=== PATIENT | male | born 2000 | race Caucasian/White ===

== ENCOUNTER 2021-03-12 18:52 | Inpatient (IN) | payer MEDICAID, SELFPAY ==
[2021-03-12 19:05] VITALS: BP 152/94; PULSE 62; RESP 16; TEMP 36.4; O2SAT 96; BMI 22.4
--- NOTE | 2021-03-12 19:07 | ECG_ITS ---
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 Measurements Intervals [place] Rate: 47 P: 66 ID: [id number] QRS: 88 QRSD: 101 T: 63 QT: 436 QTc: 387 Interpretive Statements SINUS BRADYCARDIA No previous ECG available for comparison Electronically Signed On 03-13-2021 17:10:16 CDT by Tim Hwang M.D. [id number]
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
[2021-03-12 19:37] LABS: Basophils # 0.1 10^3/uL (0.0-0.1); Basophils % 0.8 %; Eosinophils # 0.4 10^3/uL (0.0-0.8); Hematocrit 47.6 % (42.0-52.0); Hemoglobin 15.8 g/dL (11.7-16.6); Lymphocytes # 3.3 10^3/uL (0.8-4.8); Mean Corpuscular HGB Conc 33.2 g/dL (30.0-36.0); Mean Corpuscular Volume 90.5 fl (80-94); Monocytes # 0.8 10^3/uL (0.2-0.9); Monocytes % 8.6 %; Neutrophils # 4.42 10^3/uL (1.8-7.7); Neutrophils % 49.2 %; Nucleated Red Blood Cells % 0 %; Platelet Count 310 10^3/cmm (130-400); Red Blood Count 5.26 10^6/uL (4.1-5.3); Red Cell Distribution Width 12.7 % (12.1-15.1)
[2021-03-12 20:12] LABS: Alanine Aminotransferase 46 U/L (0-41); Albumin Level 4.5 g/dL (3.5-5.2); Alkaline Phosphatase 80 IU/L (40-130); Anion Gap 14.6 (5-19); Aspartate Amino Transferase 26 U/L (0-40); Blood Urea Nitrogen 9 mg/dL (6-20); Calcium 9.2 mg/dL (8.5-10.5); Carbon Dioxide 28 mmol/L (22-29); Chloride 98 mmol/L (98-107); Globulin 2.9 g/dL (1.3-4.6); Glomerular Filtration Rate 168.5 mL/min (90-130); Glucose 56 mg/dL (65-115); Osmolality Calculated 280 mOsm/kg (285-295); Potassium 3.6 mmol/L (3.5-5.1); Sodium 137 mmol/L (136-145); Thyroid Stimulating Hormone 2.33 uIU/mL (0.27-4.20); Total Bilirubin 0.5 mg/dL (0.15-1.2); Total Protein 7.4 g/dL (6.6-8.7)
[2021-03-12 20:23] LABS: Acetaminophen < 5.0 ug/mL (10-30); Alcohol Level < 10 mg/dL (0-10); Salicylate < 0.3 mg/dL (3-10)
[2021-03-12 21:00] VITALS: BP 148/88; PULSE 64; RESP 18; O2SAT 96
[2021-03-12 21:31] VITALS: BP 124/62; BP 148/88; PULSE 57; PULSE 64; RESP 15; RESP 18; TEMP 36.8; O2SAT 96; O2SAT 98
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
[2021-03-13 06:00] VITALS: BP 126/76; PULSE 81; RESP 14; O2SAT 95
--- NOTE | 2021-03-13 12:12 | NPU.GN ---
[facility] Topic:Meditation/ Depression Zaina General Mood of Group: Alonso did not attend group today.
[2021-03-13 14:00] VITALS: BP 137/64; PULSE 69; RESP 18; TEMP 36.3; O2SAT 97
--- NOTE | 2021-03-13 14:51 | PC.NURSE ---
behaviors Beating and banging on wall in pt room. Pt denies doing any behaviors at all. laying in bed agitated. Will continue to monitor.
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
[2021-03-13 21:44] VITALS: BP 121/80; PULSE 78; RESP 16; O2SAT 96
[2021-03-14 06:00] VITALS: BP 103/48; PULSE 73; RESP 17; TEMP 36.6; O2SAT 97
[2021-03-14] MEDS: nicotine 2 mg Gum BUCCAL ×5 (10:58→20:37)
[2021-03-14 14:00] VITALS: BP 119/58; PULSE 94; RESP 20; TEMP 37.2; O2SAT 95
--- NOTE | 2021-03-14 14:00 | NPU.GN ---
[facility] Topic:Dice Breaker Psych Education General Mood of Group: Alonso did attend group and participated . Alonso was very timid and seemed to exhibit social anxiety. As group went on he seemed to relax. Alonso seemed very worried about his dogs that he has at home and is worried because no one has fed them. Alonso claims to have an apartment to move into when he is release here in [place] and would like [facility] services. This telegraphic typewriter operator aided him in completing the Intake forms as the patient could not read or write. Intake was completed for [facility] services.
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
[2021-03-14 22:00] VITALS: BP 122/73; PULSE 85; RESP 18; TEMP 36.8; O2SAT 99
--- NOTE | 2021-03-15 02:36 | PC.NURSE ---
Upon assessment patient sitting in day room. Patient is alert/oriented x4, good eye contact and friendly. Patient denies any depression, anxiety, SI/HI, hallucinations. He did attend group today. He has been social with peers and cooperative with staff. Will continue to monitor and follow plan of care. q 15 min safety check per protocol.
[2021-03-15 06:00] VITALS: RESP 16
[2021-03-15] MEDS: nicotine 2 mg Gum BUCCAL ×7 (08:29→22:22)
[2021-03-15 14:00] VITALS: BP 122/73; PULSE 85; RESP 16; TEMP 36.8; O2SAT 99
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
[2021-03-15 22:00] VITALS: BP 120/82; PULSE 78; RESP 19; TEMP 36.6; O2SAT 97
[2021-03-16 06:00] VITALS: RESP 16
[2021-03-16] MEDS: nicotine 2 mg Gum BUCCAL ×2 (07:49→09:57)
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
--- NOTE | 2021-03-16 11:36 | PC.NURSE ---
Unable to contact father, tried calling twice on the 6th. Pt states that he will be living at his Grandfathers home, his grandfather comes and leaves. Pt will be living on his own.
[2021-03-16 11:42] VITALS: BP 117/70; PULSE 102; RESP 17; TEMP 36.4; O2SAT 96
== END 2021-03-16 11:49 | disposition home or self-care (01) | DRG 880 ==
LOC: ER 21:06 → NP 21:14
PROVIDERS: Emergency Medicine; Admitting Provider Psychiatry & Neurology Psychiatry; Emergency Provider Emergency Medicine; Visit Provider Psychiatry & Neurology Psychiatry
DX: R45.851 Suicidal ideations (principal); F84.0 Autistic disorder; Z63.8 Other specified problems related to primary support group; Z62.820 Parent-biological child conflict; F90.9 Attention-deficit hyperactivity disorder, unspecified type; F12.10 Cannabis abuse, uncomplicated
CPT/HCPCS: 80053; 80307; 84443; 85025; 93005; 97165; 99285

== ENCOUNTER 2021-11-20 20:20 | Emergency (ER) | payer MEDICAID, SELFPAY ==
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
[2021-11-20 20:51] LABS: Basophils # 0.1 10^3/uL (0.0-0.1); Basophils % 0.8 %; Eosinophils # 0.3 10^3/uL (0.0-0.8); Eosinophils % 3.4 %; Hematocrit 39.9 % (42.0-52.0); Hemoglobin 14.5 g/dL (11.7-16.6); Lymphocytes % 46.1 %; Mean Corpuscular HGB Conc 36.3 g/dL (30.0-36.0); Mean Corpuscular Hemoglobin 30.6 pg (28.0-34.0); Mean Corpuscular Volume 84.2 fl (80-94); Mean Platelet Volume 10.1 fL (7.4-10.4); Monocytes # 0.5 10^3/uL (0.2-0.9); Monocytes % 6.2 %; Neutrophils # 3.66 10^3/uL (1.8-7.7); Neutrophils % 42.6 %; Nucleated Red Blood Cells % 0 %; Platelet Count 350 10^3/cmm (130-400); Red Blood Count 4.74 10^6/uL (4.1-5.3); Red Cell Distribution Width 13.4 % (12.1-15.1); White Blood Count 8.6 10^3/uL (4.0-10.0)
[2021-11-20 21:09] LABS: Alanine Aminotransferase 16 U/L (0-41); Albumin Level 4.4 g/dL (3.5-5.2); Alcohol Level 75 mg/dL (0-10); Alkaline Phosphatase 102 IU/L (40-130); Anion Gap 21.6 (5-19); Aspartate Amino Transferase 27 U/L (0-40); Blood Urea Nitrogen 10 mg/dL (6-20); Calcium 9.1 mg/dL (8.5-10.5); Carbon Dioxide 22 mmol/L (22-29); Chloride 102 mmol/L (98-107); Glomerular Filtration Rate 93.4 mL/min (90-130); Glucose 125 mg/dL (65-115); Osmolality Calculated 295 mOsm/kg (285-295); Potassium 3.6 mmol/L (3.5-5.1); Salicylate 0.6 mg/dL (3-10); Sodium 142 mmol/L (136-145); Total Bilirubin 0.2 mg/dL (0.15-1.2); Total Protein 7.4 g/dL (6.6-8.7)
[2021-11-20 21:11] LABS: Acetaminophen < 5.0 ug/mL (10-30)
[2021-11-20] MEDS: ondansetron 2 mg/ML SDV 2 mL 4 MG IVP (21:24)
[2021-11-20] MEDS: tetanus-dipt-pertussis 0.5 mL SDV IM (21:24)
[2021-11-20 21:28] VITALS: BP 131/75; PULSE 68; RESP 15; O2SAT 100
[2021-11-20] MEDS: fentaNYL 50 mcg/mL INJ 2mL IVP (21:44)
[2021-11-20 22:04] VITALS: BP 127/84; PULSE 60; RESP 12; O2SAT 97
[2021-11-20 22:31] VITALS: BP 127/84; PULSE 64; RESP 12; O2SAT 99
== END 2021-11-20 22:33 ==
PROVIDERS: Emergency Provider Emergency Medicine
DX: S06.9X9A Unspecified intracranial injury with loss of consciousness of unspecified duration, initial encounter (principal); S06.5X9A Traumatic subdural hemorrhage with loss of consciousness of unspecified duration, initial encounter; S06.6X9A Traumatic subarachnoid hemorrhage with loss of consciousness of unspecified duration, initial encounter; V86.59XA Driver of other special all-terrain or other off-road motor vehicle injured in nontraffic accident, initial encounter; Z23 Encounter for immunization
CPT/HCPCS: 70450; 70486; 71260; 72125; 74177; 80053; 80307; 85025; 90471; 90715; 96374; 96375; 99285; J2405; J3010; Q9967

== ENCOUNTER 2021-12-05 21:55 | Emergency (ER) | payer MEDICAID, SELFPAY ==
--- NOTE | 2021-12-05 21:56 | XRR_ITS ---
PROCEDURE INFORMATION: Exam: XR Chest Exam date and time: 12/05/2021 10:26 PM Age: 21 years old Clinical indication: Pain; Left-sided; Additional info: Rib pain TECHNIQUE: Imaging protocol: Radiologic exam of the chest. Views: 1 view. COMPARISON: CT chest abd pel w con* 11/20/2021 9:02 PM FINDINGS: Lungs: Lungs are clear bilaterally. Pleural spaces: No pleural effusion. No pneumothorax. Heart/Mediastinum: The cardiac silhouette and mediastinal contours are unremarkable. Bones/joints: No acute fracture. XR/XR chest 1V portable [id number] IMPRESSION: 1. No acute cardiopulmonary process. 2. No acute fracture. 3. CT scan of the chest with contrast would be recommended if there is continuing clinical concern for thoracic injury.
[2021-12-05 22:07] VITALS: BP 141/92; PULSE 73; RESP 18; TEMP 36.6; O2SAT 98; BMI 21.2
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
== END 2021-12-05 23:06 | disposition home or self-care (01) ==
PROVIDERS: Emergency Provider Physician Assistant
DX: S29.011A Strain of muscle and tendon of front wall of thorax, initial encounter (principal); X50.9XXA Other and unspecified overexertion or strenuous movements or postures, initial encounter
CPT/HCPCS: 71045; 71101; 99283

== ENCOUNTER 2022-04-01 19:12 | Emergency (ER) | payer MEDICAID, SELFPAY ==
[2022-04-01 19:18] VITALS: BP 177/103; PULSE 88; RESP 17; TEMP 36.9; O2SAT 99; BMI 20.9
[2022-04-01 19:38] LABS: Basophils # 0.1 10^3/uL (0.0-0.1); Basophils % 0.7 %; Eosinophils # 0.1 10^3/uL (0.0-0.8); Hematocrit 47.7 % (42.0-52.0); Hemoglobin 16.2 g/dL (11.7-16.6); Lymphocytes # 1.4 10^3/uL (0.8-4.8); Lymphocytes % 20.4 %; Mean Corpuscular Hemoglobin 30.4 pg (28.0-34.0); Mean Corpuscular Volume 89.5 fl (80-94); Mean Platelet Volume 9.7 fL (7.4-10.4); Monocytes # 1.1 10^3/uL (0.2-0.9); Monocytes % 16.6 %; Neutrophils # 4.12 10^3/uL (1.8-7.7); Nucleated Red Blood Cells % 0 %; Platelet Count 299 10^3/cmm (130-400); Red Blood Count 5.33 10^6/uL (4.1-5.3); Red Cell Distribution Width 13.2 % (12.1-15.1); White Blood Count 6.8 10^3/uL (4.0-10.0)
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
[2022-04-01 19:55] LABS: Alanine Aminotransferase 14 U/L (0-41); Albumin Level 4.8 g/dL (3.5-5.2); Alkaline Phosphatase 87 U/L (40-130); Aspartate Amino Transferase 26 U/L (0-40); Blood Urea Nitrogen 19 mg/dL (6-20); Calcium 9.4 mg/dL (8.5-10.5); Carbon Dioxide 25 mmol/L (22-29); Chloride 100 mmol/L (98-107); Creatinine Clr Calc Pharmacy 151.6994; Globulin 3.3 g/dL (1.3-4.6); Glomerular Filtration Rate 119.8 mL/min (90-130); Glucose 106 mg/dL (65-115); Osmolality Calculated 289 mOsm/kg (285-295); Sodium 138 mmol/L (136-145); Total Bilirubin 0.3 mg/dL (0.15-1.2); Total Protein 8.1 g/dL (6.6-8.7)
[2022-04-01 19:58] LABS: Acetaminophen < 5.0 ug/mL (10-30); Alcohol Level < 10 mg/dL (0-10); Salicylate < 0.3 mg/dL (3-10)
--- NOTE | 2022-04-02 05:10 | DCPLANNER ---
Addendum entered by Karina Saucedo 04/23/22 15:12: senior product marketing manager received the following message from [facility] regarding referral to [facility]: emailed Tala/reece or Crystal to call and give information On 04/10/22 @ 08:37 Karina Saucedo Wrote To [facility] Scheduling was his information sent to Tala [place] to reach out to him to start services? On 04/09/22 @ 15:48 Karina Torres Wrote To Karina Saucedo not a patient here, needs to come to [facility] for walk-in assessment to start sevices Original Note: senior product marketing manager had message to schedule a follow up appointment for patient with [facility]. senior product marketing manager sent patients information to [facility] scheduling, patients information will be reviewed. Clinic will call patient with appointment information.
== END 2022-04-01 21:19 | disposition home or self-care (01) ==
PROVIDERS: Emergency Provider Emergency Medicine
DX: F32.A Depression, unspecified (principal)
CPT/HCPCS: 80053; 80307; 85025; 99283

== ENCOUNTER 2024-03-03 19:30 | Emergency (ER) | payer MEDICAID, SELFPAY ==
[2024-03-03 19:39] VITALS: BP 126/77; PULSE 100; RESP 16; TEMP 36.8; O2SAT 95
--- NOTE | 2024-03-03 20:03 | XRR_ITS ---
PROCEDURE INFORMATION: Exam: XR Left Knee Exam date and time: 03/03/2024 8:19 PM Age: 24 years old Clinical indication: Injury or trauma; Fall; Laceration; Patella or knee; Left; Foreign body involvement not specified; Patient HX: Lac to lt anterior knee; Lt knee pain TECHNIQUE: Imaging protocol: Radiologic exam of the left knee. Views: 3 views. COMPARISON: No relevant prior studies available. FINDINGS: Bones/joints: Normal. Soft tissues: Normal. XR/XR knee LT 3V* [id number] IMPRESSION: No acute findings.
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
[2024-03-03 21:52] VITALS: BP 134/78; PULSE 68; O2SAT 99
== END 2024-03-03 21:53 | disposition home or self-care (01) ==
PROVIDERS: Emergency Provider Emergency Medicine
DX: S81.012A Laceration without foreign body, left knee, initial encounter (principal); V18.0XXA Pedal cycle driver injured in noncollision transport accident in nontraffic accident, initial encounter; Y93.55 Activity, bike riding
CPT/HCPCS: 12002; 73562; 99283

== ENCOUNTER 2024-03-31 15:19 | Emergency (ER) | payer MEDICAID, SELFPAY ==
[2024-03-31 15:24] VITALS: BP 153/103; PULSE 130; RESP 16; TEMP 36.6; O2SAT 100; BMI 23.0
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
[2024-03-31 16:19] VITALS: BP 114/69; PULSE 104; RESP 16; O2SAT 99
[2024-03-31 16:47] VITALS: BP 140/79; PULSE 113; RESP 20; O2SAT 99
== END 2024-03-31 16:33 | disposition home or self-care (01) ==
PROVIDERS: Emergency Provider Physician Assistant
DX: S01.01XA Laceration without foreign body of scalp, initial encounter (principal); X58.XXXA Exposure to other specified factors, initial encounter
CPT/HCPCS: 12011; 99282

== ENCOUNTER 2024-07-01 16:50 | Emergency (ER) | payer MEDICAID, SELFPAY ==
[2024-07-01 16:54] VITALS: BP 143/88; PULSE 91; RESP 16; TEMP 36.3; O2SAT 99; BMI 23.0
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
[2024-07-01] MEDS: tetanus-dipt-pertussis 0.5 mL SDV IM (17:50)
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
[2024-07-01 18:18] VITALS: BP 143/73; PULSE 86; O2SAT 100
[2024-07-01] MEDS: iohexol 350 mg/mL 500 mL Btl (per mL) IV (18:21)
[2024-07-01 18:34] VITALS: BP 137/86; PULSE 85; O2SAT 100
[2024-07-01 18:38] LABS: Basophils # 0.1 10^3/uL (0.0-0.1); Basophils % 0.6 %; Eosinophils # 0.1 10^3/uL (0.0-0.8); Eosinophils % 1.2 %; Hematocrit 42.4 % (37-53); Lymphocytes # 1.9 10^3/uL (0.8-4.8); Lymphocytes % 16.9 %; Mean Corpuscular Hemoglobin 29.5 pg (27-33); Mean Corpuscular Volume 89.3 fl (82-101); Mean Platelet Volume 9.7 fL (7.4-10.4); Monocytes # 0.9 10^3/uL (0.2-0.9); Monocytes % 7.8 %; Neutrophils # 8.33 10^3/uL (1.8-7.7); Neutrophils % 72.9 %; Nucleated Red Blood Cells % 0 %; Platelet Count 255 10^3/cmm (157-399); Red Blood Count 4.75 10^6/uL (3.85-5.65); Red Cell Distribution Width 12.5 % (12.1-15.1); White Blood Count 11.43 10^3/uL (3.29-11.43)
[2024-07-01 18:59] LABS: Alanine Aminotransferase 115 U/L (0-41); Albumin Level 4.1 g/dL (3.5-5.2); Alkaline Phosphatase 89 U/L (40-130); Anion Gap 14.3 (5-19); Aspartate Amino Transferase 109 U/L (0-40); Blood Urea Nitrogen 16 mg/dL (6-20); Calcium 8.7 mg/dL (8.5-10.5); Carbon Dioxide 24 mmol/L (22-29); Chloride 100 mmol/L (98-107); Creatinine Clr Calc Pharmacy 137.3689; Globulin 3.1 g/dL (1.3-4.6); Glomerular Filtration Rate 102.8 mL/min (90-130); Glucose 90 mg/dL (65-115); Osmolality Calculated 279 mOsm/kg (285-295); Potassium 4.3 mmol/L (3.5-5.1); Sodium 134 mmol/L (136-145); Total Bilirubin 0.2 mg/dL (0.15-1.2); Total Protein 7.2 g/dL (6.6-8.7)
[2024-07-01 19:48] VITALS: BP 147/88; PULSE 97; RESP 16; O2SAT 100
--- NOTE | 2024-07-01 20:17 | PC.NURSE ---
Pt sent home with 2tabs of Hydrocodone 5/[address] Baker's orders.
[2024-07-01 20:18] VITALS: BP 151/93; PULSE 95; RESP 16; O2SAT 100
== END 2024-07-01 20:20 | disposition home or self-care (01) ==
PROVIDERS: Family Medicine; Emergency Provider Emergency Medicine
DX: S42.001A Fracture of unspecified part of right clavicle, initial encounter for closed fracture (principal); T14.8XXA Other injury of unspecified body region, initial encounter; V20.49XA Other motorcycle driver injured in collision with pedestrian or animal in traffic accident, initial encounter
CPT/HCPCS: 36415; 70450; 71260; 72125; 73130; 74177; 80053; 85025; 90471; 90715; 99285

== ENCOUNTER 2025-03-14 17:08 | Inpatient (IN) | payer MEDICAID, SELFPAY ==
--- NOTE | 2025-03-14 17:09 | ED.C_ITS ---
HPI - Psych 2 General: Chief Complaint: Overdose Stated Complaint: 96, Overdose Time Seen by Provider: 03/14/25 17:09 History of Present Illness: 25-year-old man who presents emergency r oom with police after calling in saying he was suicidal. He said he was suicidal because he could not get a ride to [place] with any of his roommates to see his grandmother. He also took 5 Xanax. He says this was just to make him sleep. He is currently denying SI but please officer says he was very adamant that he was earlier. Related Data Previous Rx's ?Medication ?Instructions ?Recorded polymyxin B sulfate 10,000 1 drp ophthalmic (eye) Q3H 7 days 07/01/22 unit-trimethoprim 1 mg/mL eye drops #10 mL hydrocodone 5 mg-acetaminophen 325 1 tab PO Q8H PRN pa in #7 tabs 07/01/24 mg tablet Allergies Allergy/AdvReac Type Severity Reaction Status Date / Time No Known Allergies Allergy Verified 03/03/24 19:44 Review of Systems 2 Narrative: Constitutional symptoms: Negative except as documented in HPI. Skin symptoms: Negative except as documented in HPI. Eye symptoms: Negative except as documented in HPI. ENMT symptoms: Negative except as documented in HPI. Respiratory symptoms: Negative except as documented in HPI. Cardiovascular symptoms: Negative except as documented in HPI. Gastrointestinal symptoms: Negative except as documented in HPI. Genitourinary symptoms: Negative except as documented in HPI. Musculoskeletal symptoms: Negative except as documented in HPI. Neurologic symptoms: Negative except as documented in HPI. Psychiatric symptoms: Negative except as documented in HPI. Endocrine symptoms: Negative except as documented in HPI. [facility] ED 2 PFSH: Medical History (Updated 03/14/25 @ 19:57 by Clotilde Alba MD) No significant past medical history Surgical History No significant past surgical history Family History Denies family history of Clotting disorder Bleeding disorder Physical Exam 2 Narrative: EXAM NARRATIVE: General: Alert, no acute distress. Skin: Warm, dry. Head: Normocephalic, atraumatic. Neck: Supple, trachea midline. Eye: Extraocular movements are intact. Ears, nose, mouth and throat: mucosa moist. Cardiovascular: Regular, Normal peripheral perfusion. Respiratory: Lungs are clear to auscultation, respirations are non-labored, breath sounds are equal, Symmetrical chest wall expansion. Gastrointestinal: Soft, Nontender, Non distended Musculoskeletal: Normal ROM, no deformity. Neurological: Alert and oriented, No focal neurological deficit observed. Psychiatric: Patient is uncooperative. He does deny suicidal and homicidal ideation. He says we will have to fight him to get him to dress out. Ultimately he calms down. Course 2 Vital Signs: Vital signs: Vital Signs Temperature 98.8 F 03/14/25 17:18 Pulse Rate 86 03/14/25 20:30 Respiratory Rate 18 03/14/25 17:18 Blood Pressure 135/72 03/14/25 17:18 Pulse Oximetry 98 03/14/25 20:30 Oxygen Delivery Me thod Room Air 03/14/25 20:30 MDM - Psych Medical Decision Making Medical decision making: Patient's reason for coming to the emergency room: 96-hour hold by police Social determinants patient is unemployed I reviewed the patient's medical record. Patient had a psychiatric visit back in 2020 I reviewed the patient's current home meds Alternate historians: Differential diagnosis: Patient with reported depression and suicidal ideation. concerns for infection, alcohol intoxication, cardiac issues or other medical problems prior to psychiatric admission. Workup: labwork, ekg ordered to evaluate the pathologies and to clear the patient medically prior to psychiatric admission Lab Review: Laboratory results were reviewed and interpreted by myself the emergency room physician. - Medically cleared. - EKG shows no ischemic changes. - Blood alcohol level is negative, -Tylenol and salicylate levels are negative. ?Urinalysis and drug screen pending at admission. - No anemia. - BUN and creatinine are within normal limits. Assessment of risk: - Level of risk - Was hospitalization considered? Consultation: I spoke with Dr. Callaway who agrees to admission pending bed. Assessment and plan: Suicidal ideation -Admission to neuropsychiatric unit for continued evaluation and treatment. - All lab work was reviewed and interpreted personally by myself, the ER physician - Evaluation and treatment of this problem were appropriate in the emergency setting Lab Data 03/14/25 18:01 03/14/25 18:01 Laboratory Results WBC 10.12 10^3/uL (3.29-11.43) 03/14/25 18: RBC 4.80 10^6/uL (3.85-5.65) 03/14/25 18: Hgb 14.40 g/dL (11.27-16.99) 03/14/25 18: Hct 41.2 % (37-53) 03/14/25 18: MCV 85.8 fl (82-101) 03/14/25 18: MCH 30.0 pg (27-33) 03/14/25 18: MCHC 35.0 g/dL (30-55) 03/14/25 18: RDW 12.7 % (12.1-15.1) 03/14/25 18: Plt Count 277 10^3/cmm (157-399) 03/14/25 18: MPV 9.5 fL (7.4-10.4) 03/14/25 18: Neut % (Auto) 66.9 % 03/14/25 18: Lymph % (Auto) 22.9 % 03/14/25 18: [place] % (Auto) 8.4 % 03/14/25 18: Eos % (Auto) 0.9 % 03/14/25 18: Baso % (Auto) 0.5 % 03/14/25 18: Neut # (Auto) 6.77 10^3/uL (1.8-7.7) 03/14/25 18: Lymph # (Auto) 2.3 10^3/uL (0.8-4.8) 03/14/25 18: [place] # (Auto) 0.9 10^3/uL (0.2-0.9) 03/14/25 18: Eos # (Auto) 0.1 10^3/uL (0.0-0.8) 03/14/25 18: Baso # (Auto) 0.1 10^3/uL (0.0-0.1) 03/14/25 18: Nucleated RBC % (auto) 0 % 03/14/25 18: Nucleated RBCs # 0.0 /100WBC 03/14/25 18: Sodium 139 mmol/L (136-145) 03/14/25 18: Potassium 4.0 mmol/L (3.5-5.1) 03/14/25 18: Chloride 103 mmol/L (98-107) 03/14/25 18: Carbon Dioxide 23 mmol/L (22-29) 03/14/25 18: Anion Gap 17.0 (5-19) 03/14/25 18: BUN 20 mg/dL (6-20) 03/14/25 18: Creatinine 1.0 mg/dL (0.7-1.2) 03/14/25 18: GFR Calculation 90.3 mL/min (90-130) 03/14/25 18: Glucose 89 mg/dL (65-115) 03/14/25 18: Calculated Osmolality 290 mOsm/kg (285-295) 03/14/25 18: Calcium 9.0 mg/dL (8.5-10.5) 03/14/25 18: Total Bilirubin 0.7 mg/dL (0.15-1.2) 03/14/25 18: AST 28 U/L (0-40) 03/14/25 18: ALT 19 U/L (0-41) 03/14/25 18: Alkaline Phosphatase 84 U/L (40-130) 03/14/25 18: Total Protein 7.5 g/dL (6.6-8.7) 03/14/25 18: Albumin 4.5 g/dL (3.5-5.2) 03/14/25 18: Globulin 3.0 g/dL (1.3-4.6) 03/14/25 18: TSH 0.69 uIU/mL (0.27-4.20) 03/14/25 18: Salicylates < 0.3 mg/dL (3-10) L 03/14/25 18: Acetaminophen < 5.0 ug/mL (10-30) L 03/14/25 18: Ethyl Alcohol < 10 mg/dL (0-10) 03/14/25 18:01 No radiology studies performed this visit Discharge Plan Discharge Patient Disposition: Admitted As Inpatient Clinical Impression: Suicidal ideation Condition: Stable Coding Level of Care Code ED Product Manager E [employer] for Candida Joe
--- NOTE | 2025-03-14 17:10 | ECG_ITS ---
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 Measurements Intervals [place] Rate: 88 P: 82 OK: 152 QRS: 91 QRSD: 105 T: 75 QT: 362 QTc: 440 Interpretive Statements SINUS RHYTHM BORDERLINE RIGHT AXIS DEVIATION [QRS AXIS > 90] POSSIBLE RIGHT VENTRICULAR CONDUCTION DELAY [RSR (QR) IN V1/V2] Compared to ECG 03/12/2021 19:57:20 Sinus bradycardia no longer present Electronically Signed On 03-14-2025 23:38:27 BENCH CARPENTER by Becki Zuñiga M.D. [email or web address]
[2025-03-14 17:18] VITALS: BP 135/72; PULSE 94; RESP 18; TEMP 37.1; O2SAT 99; BMI 19.0
--- OUTSIDE RECORDS SUMMARY | 2025-03-14 17:18 | XMS_ITS | Clinical Summary ---
Author Organization [employer] Address [address] Reichn: Epic Prelude ADT [place] [address] Care Team Providers Care Real Estate Agency Licensee Name Role Phone Unavailable Primary Care Provider Unavailabl e Allergies No known active allergies Active Problems Problem Noted Date Diagnosed Date Incontinence of urine 06/07/2011 ADHD (attention deficit hyperactivity disorder) 06/07/2011 Asperger's disorder 06/07/2011 Generalized anxiety disorder 06/07/2011 Immunizations Immunization Administration Dates Next Due (M-M-R II/PRIORIX)(12 MO UP) MEASLES, MUMPS AND RUBELLA VIRUS VACCINE, 0.5 ML IM/SUBCUT 01/16/2004,01/22/2000 (TDVAX)(7 YRS UP) TETANUS AN D DIPHTHERIA TOXOIDS, ADSORBED (2 LF OF TETANUS TOXOID AND 2 LF OF DIPHTHERIA TOXOID), 0.5ML (PF), IM 10/26/2008 (VARIVAX)(12 MOS UP)VARICELL A VIRUS VACCINE (PF) 0.5 ML, SUB CUT 11/24/2000 Dt Dtp Dtap Vaccine 01/16/2004, 1,01/22/2000,1999,1999 HIB, Unspecified Formulation 11/24/2000, 01/22/2000,1999,1998 Hepatitis B Vaccine 01/22/2000,1999,1998 IPV/OPV 01/16/2004, 0,1999,1998 Family History Medical History Relation Name Comments Healthy Father Healthy Mother Relation Name Status Comments Father Alive Mother Alive Social History Tobacco Use Types Packs/Day Years Used Date Smoking Tobacco: Never Alcohol Use Standard Drinks/Week Comments No 0 (1 standard drink = 0.6 oz pur e alcohol) Sex and Gender Information Value Date Recorded Sex Assigned at Not on file 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 Gender Identity Not on file Sexual Orientation Not on file Last Filed Vital Signs Vital Sign Reading Time Taken Comments Blood Pressure 133/85 12/14/2021 12:28 AM CDT Pulse - - Temperature 36.1 C (97 F) 12/14/2021 12:28 AM CDT Respiratory Rate 20 12/14/2021 12:28 AM CDT Oxygen Saturation 98% 12/14/2021 12:28 AM CDT Inhaled Oxygen Concentration - - Weight 77.1 kg (170 lb) 12/14/2021 12:28 AM CDT Height 182.9 cm (6') 12/14/2021 12:28 AM CDT Body Mass Index 23.06 12/14/2021 12:28 AM CDT Plan of Treatment Health Maintenance Due Date Last Done Comments DTAP/TDAP/TD VACCINES (6 - Tdap) 2010 10/26/2008, 01/16/2004, 11/24/2000, Additional history exists HPV VACCINES (1 - Male 3-dos e series) 2014 INFLUENZA VACCINE (#1) 2024 HEPATITIS B VACCINES Completed 01/22/2000, 1999, 2000
--- OUTSIDE RECORDS SUMMARY | 2025-03-14 17:18 | XMS_ITS | Encounter Summary ---
Author Organization [employer] [facility] Address [address] [place] [address] Care Team Providers Care Chemical Supervisor Name Role Phone Sonya Retana DO Primary Care Provider [phone] Encounter Details Date Type Department Care Team (Latest Contact Info) Description 1999 Outpatient Historical HIS [facility] Mike Kinney MD [address] [place] [id number] Unspecified otitis media (Primary Dx) Social History Tobacco Use Types Packs/Day Years Used Date Smoking Tobacco: Never Assessed Sex and Gender Information Value Date Recorded Sex Assigned at Not on file 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
--- OUTSIDE RECORDS SUMMARY | 2025-03-14 17:18 | XMS_ITS | Clinical Summary ---
Author Organization [facility] Address [address] [place] [address] Care Team Providers Care Immigration Investigator Name Role Phone LaineySonya Jeny JOLLY Primary Care Provider Allergies No known active allergies Medications sertraline (ZOLOFT) 100 mg Oral tabletIndication s:Generalized anxiety disorder Take 1 Tab by mouth daily at bedtime. 30 Tab 12 06/18/2011 Active aripiprazole (ABILIFY) 5 mg Oral tablet Take 1 Tab by mouth daily. 30 Tab 12 07/02/2011 Active mirtazapine (REMERON) 7.5 mg Oral tabletIndication s:Insomnia Take 1-2 Tabs by mouth daily at bedtime. 60 Tab 2 07/10/2011 Active Active Problems Problem Noted Date Diagnosed Date Generalized anxiety disorder 06/07/2011 Incontinence of urine 06/07/2011 ADHD (attention deficit hyperactivity disorder) 06/07/2011 Asperger's disorder 06/07/2011 Immunizations Immunization Administration Dates Next Due (M-M-R II/PRIORIX)(12 MO UP) MEASLES, MUMPS AND RUBELLA VIRUS VACCINE, 0.5 ML IM/SUBCUT 01/16/2004,01/22/2000 (TDVAX)(7 YRS UP) TETANUS AN D DIPHTHERIA TOXOIDS, ADSORBED (2 LF OF TETANUS TOXOID AND 2 LF OF DIPHTHERIA TOXOID), 0.5ML (PF), IM 10/26/2008 (VARIVAX)(12 MOS UP)VARICELL A VIRUS VACCINE (PF) 0.5 ML, SUB CUT 11/24/2000 Dt Dtp Dtap Vaccine 01/16/2004,01/22/2000,1999,1999 HIB, Unspecified Formulation 11/24/2000, 01/22/2000,1999,1998 Hepatitis B [...] on file 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 Gender Identity Not on file Sexual Orientation Not on file Last Filed Vital Signs Vital Sign Reading Time Taken Comments Blood Pressure 86/52 05/28/2011 1:45 PM CREMATORY OPERATOR Pulse 70 09/15/2011 3:02 PM CDT Temperature 36.7 C (98 F) 09/15/2011 3:02 PM CDT Respiratory Rate 20 09/15/2011 3:02 PM CDT Oxygen Saturation 96% 09/15/2011 3:02 PM CDT Inhaled Oxygen Concentration - - Weight 42.2 kg (93 lb) 09/15/2011 3:02 PM CDT Height 149.9 cm (4' 11 ) 09/15/2011 3:02 PM CDT Body Mass Index 18.78 09/15/2011 3:02 PM CDT Plan of Treatment Health Maintenance Due Date Last Done Comments DTAP/TDAP/TD VACCINES (6 - Tdap) 2010 10/26/2008, 01/16/2004, 11/24/2000, Additional history exists HPV VACCINES (1 - Male 3-dos e series) 2014 Preventative Visit-Managed Medicaid 2018 INFLUENZA VACCINE (#1) 2024 HEPATITIS B VACCINES Completed 01/22/2000, 1999, 1999 Insurance [place] Care Teams Immigration Investigator Relationship Specialty Start Date End Date Sonya Retana DO [address] [place] [address] PCP - General Family Practice 05/28/11
--- OUTSIDE RECORDS SUMMARY | 2025-03-14 17:18 | XMS_ITS | Encounter Summary ---
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
--- OUTSIDE RECORDS SUMMARY | 2025-03-14 17:18 | XMS_ITS | Encounter Summary ---
Author Organization [employer] [facility] Address [address] [place] [address] Care Team Providers Care Route Salesperson Name Role Phone Sonya Retana DO Primary Care Provider [phone]- [phone] Encounter Details Date Type Department Care Team (Latest Contact Info) Description 1999 Outpatient Historical HIS [facility] Mike Kinney MD [address] [place] [phone] Unspecified otitis media (Primary Dx) Social History Tobacco Use Types Packs/Day Years Used Date Smoking Tobacco: Never Assessed Sex and Gender Information Value Date Recorded Sex Assigned at Not on file 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
--- NOTE | 2025-03-14 17:37 | PC.NURSE ---
pt becoming agitated, states he does not want to stay. [employer] Unit Leader and security at bedside reading 96 hour hold rights, pt refusing to change into green paper scrubs, states he will refuse treatment. ED provider notified
[2025-03-14] MEDS: LORazepam 2 mg/mL INJ 1 mL IM (17:41)
--- NOTE | 2025-03-14 18:00 | PC.NURSE ---
PT was read his 96 hour hold rights at this time. Security present
[2025-03-14 18:08] LABS: Hematocrit 41.2 % (37-53); Hemoglobin 14.40 g/dL (11.27-16.99); Mean Corpuscular HGB Conc 35.0 g/dL (30-55); Mean Corpuscular Hemoglobin 30.0 pg (27-33); Mean Corpuscular Volume 85.8 fl (82-101); Nucleated Red Blood Cells % 0 %; Platelet Count 277 10^3/cmm (157-399); Red Blood Count 4.80 10^6/uL (3.85-5.65); White Blood Count 10.12 10^3/uL (3.29-11.43)
[2025-03-14 18:12] VITALS: PULSE 83; O2SAT 93
[2025-03-14 18:15] VITALS: PULSE 82; O2SAT 97
[2025-03-14 18:46] LABS: Alanine Aminotransferase 19 U/L (0-41); Albumin Level 4.5 g/dL (3.5-5.2); Alkaline Phosphatase 84 U/L (40-130); Anion Gap 17.0 (5-19); Aspartate Amino Transferase 28 U/L (0-40); Blood Urea Nitrogen 20 mg/dL (6-20); Calcium 9.0 mg/dL (8.5-10.5); Carbon Dioxide 23 mmol/L (22-29); Chloride 103 mmol/L (98-107); Globulin 3.0 g/dL (1.3-4.6); Glucose 89 mg/dL (65-115); Osmolality Calculated 290 mOsm/kg (285-295); Potassium 4.0 mmol/L (3.5-5.1); Sodium 139 mmol/L (136-145); Thyroid Stimulating Hormone 0.69 uIU/mL (0.27-4.20); Total Protein 7.5 g/dL (6.6-8.7)
[2025-03-14 18:47] LABS: Acetaminophen < 5.0 ug/mL (10-30); Alcohol Level < 10 mg/dL (0-10); Salicylate < 0.3 mg/dL (3-10)
[2025-03-14 20:30] VITALS: PULSE 86; O2SAT 98
[2025-03-14 23:28] VITALS: BP 128/79; PULSE 116; RESP 18; O2SAT 97
[2025-03-15 05:31] VITALS: BP 96/47; PULSE 56; O2SAT 99
--- NOTE | 2025-03-15 05:41 | PC.NURSE ---
Pt sleep throughout the night. This nurse got vitals signs, pt told her to leave him alone. Pt did eventually agree to vs. This nurse asked if he needed to urinate. Pt denied need and rolled over.
[2025-03-15 07:46] VITALS: O2SAT 99
[2025-03-15 08:48] VITALS: RESP 18
[2025-03-15 13:43] VITALS: BP 105/68; PULSE 92; RESP 18; O2SAT 98
[2025-03-15 14:46] VITALS: BP 133/85; PULSE 65; RESP 18; TEMP 36; O2SAT 100
--- NOTE | 2025-03-15 16:16 | PC.ADMIT ---
202 w caroline Admission Note:Pt states that he was coming from [place] to to see his mother who was down visiting from [place]. Him and his gf got into an argument, he told her to take him to the stress unit. He then became very upset and smashed his head on the dash, she called the engineering drawings checker. He was brought in by the engineering drawings checker on a 96 hour hold. He was agitated in ER and was given Geodon and Ativan. He has been calm and cooperative during his assessment. The patient,Alonso Cabello,25 y/o, was given written information regarding hospital policies, unit procedures and contact persons. Patient's smoking status: . Vital Signs - 8 hr 03/15/25 08:48 03/15/25 13:43 03/15/25 14:46 Temperature 96.8 F L Pulse Rate 92 65 Respiratory Rate 18 18 18 Blood Pressure 105/68 133/85 Pulse Oximetry 98 100 Oxygen Delivery Method Room Air 03/15/25 14:53 Temperature Pulse Rate Respiratory Rate Blood Pressure Pulse Oximetry Oxygen Delivery Method Room Air
[2025-03-15 20:20] VITALS: BP 122/77; PULSE 116; RESP 18; TEMP 36.7; O2SAT 100
[2025-03-15 23:19] LABS: PCP Screen Urine Negative (Negative)
[2025-03-16 06:00] VITALS: BP 118/65; PULSE 58; RESP 16; TEMP 36.6; O2SAT 100
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
[2025-03-16 14:00] VITALS: BP 103/60; PULSE 63; RESP 18; TEMP 36.4; O2SAT 100
[2025-03-16 20:29] VITALS: BP 106/60; PULSE 75; RESP 17; TEMP 36.6; O2SAT 99
[2025-03-17 06:00] VITALS: BP 113/76; PULSE 83; RESP 16; TEMP 36.5; O2SAT 93
[2025-03-17 14:00] VITALS: BP 136/83; PULSE 120; RESP 16; TEMP 36.5; O2SAT 99
--- NOTE | 2025-03-17 14:38 | P.NPUPN_ITS ---
Subjective NPU 2 Subjective: Patient presented today reporting that things are going okay. He endorsed being clear that his addiction has led to him being here and he was more honest today reporting that he had been using on and off for the past couple weeks after relapsing after reportedly 2-year sobriety. He supposedly is having concerns regarding his cravings and getting home. We discussed the risks, benefits and alternatives of a trial of naltrexone and he understood and agreed to proceed as is documented in this note. Mental Status Exam 2 MSE Comments: This is a tall well-nourished well-developed white male in hospital scrubs with adequate grooming but limited eye contact. No abnormal movements except for mild psychomotor retardation. Cooperative with exam in mild to moderate distress. Speech was slightly decreased rate and volume. Mood described as I am homesick, affect congruent. Thought process organized. Thought content: Patient denied suicidal or homicidal ideation, there were no delusions reported or noted, he denied any auditory or visual hallucinations. Attention and concentration were intact and memory appeared mostly reliable but none were formally tested. He is alert and oriented x 3. Insight is limited, judgment and impulse control limited versus impaired. Vitals/I&O/Wt Last Vital Signs Temp 97.7 F 03/17/25 14:00 Pulse 120 H 03/17/25 14:00 Resp 16 03/17/25 14:00 BP 136/83 03/17/25 14:00 Pulse Ox 99 03/17/25 14:00 O2 Del Method Room Air 03/17/25 14:00 Data NPU 03/14/25 18:01 03/14/25 18:01 A&P Assessment and plan 1. Parent-child relational problem: 2. History of ADHD: 3. Suicidal ideation: 4. Methamphetamine use disorder, severe, dependence: 5. Cannabis use disorder: 6. Generalized anxiety disorder: Plan: This is a 25-year-old white male with a history of mental health issues going back many years to his childhood. He has significant addiction issues as well as mental health challenges. Suicidal ideation. ADHD. Depression. Anxiety. Methamphetamine use. Behavioral problems. Sleep difficulty. Plan Recommended utilization of the crisis center located in the building for immediate support regarding suicidal ideation. Advised use of the crisis network phone line to access support and speak with someone about current feelings. 1. Consider medication. Start naltrexone 50 mg p.o. daily. 2. Encourage individual, group and milieu therapy. 3. Continue every 15 minute checks for safety. 4. Obtain collateral information. 5. Observe against the backdrop of the 96-hour hold. 6. Encouraged individual, group and milieu therapy. PDMP PDMP Reviewed: Not Reviewed Involuntary Hold Information 2 Hold Status: Legal Status: 96 Hour Hold Date/Time Hold Expires: 1 05/21/24@1730 96 Hour Hold: 96 Hour Involuntary Admission: No Attestations NPU 2 Medical Necessity Statement*: Inpatient hospitalization is medically necessary and the clinically appropriate intervention, at this time. We will monitor medications and make changes as indicated. Likely length of stay is 2-4 days. Coding Level of Care Code Acute Code for g Fwd Diagnoses Parent-child relational problem Z62.820 History of ADHD Z86.59 Suicidal ideation R45.851 Methamphetamine use disorder, severe, dependence F15.20 Cannabis use disorder F12.90 Generalized anxiety disorder F41.1
[2025-03-17 20:50] VITALS: BP 128/87; PULSE 67; RESP 17; TEMP 36.5; O2SAT 98
[2025-03-18 06:00] VITALS: BP 130/81; PULSE 87; RESP 18; TEMP 36.4; O2SAT 100; BMI 21.7
--- NOTE | 2025-03-18 07:07 | P.NPUPN_ITS ---
Subjective NPU 2 Subjective: Patient presented today reporting that things are going better. He endorsed taking naltrrexone without incident or concern and was asking about logistics of discharge. He was open about his relapse and wanting to reestablish his sobriety. He denied any side effects to the medication, and we discussed likely discharge in the next 48 hours. Mental Status Exam 2 MSE Comments: This is a tall well-nourished well-developed white male in hospital scrubs with adequate grooming but limited eye contact. No abnormal movements except for mild psychomotor retardation. Cooperative with exam in mild distress. Speech was slightly decreased rate and volume. Mood described as better, affect congruent. Thought process organized. Thought content: Patient denied suicidal or homicidal ideation, there were no delusions reported or noted, he denied any auditory or visual hallucinations. Attention and concentration were intact and memory appeared mostly reliable but none were formally tested. He is alert and oriented x 3. Insight is limited, judgment and impulse control limited versus impaired. Vitals/I&O/Wt Last Vital Signs Temp 97.7 F 03/17/25 20:50 Pulse 67 03/17/25 20:50 Resp 17 03/17/25 20:50 BP 128/87 03/17/25 20:50 Pulse Ox 98 03/17/25 20:50 O2 Del Method Room Air 03/17/25 20:50 Data NPU 03/14/25 18:01 03/14/25 18:01 A&P Assessment and plan 1. Parent-child relational problem: 2. History of ADHD: 3. Suicidal ideation: 4. Methamphetamine use disorder, severe, dependence: 5. Cannabis use disorder: 6. Generalized anxiety disorder: Plan: This is a 25-year-old white male with a history of mental health issues going back many years to his childhood. He has significant addiction issues as well as mental health challenges. Suicidal ideation. ADHD. Depression. Anxiety. Methamphetamine use. Behavioral problems. Sleep difficulty. Plan Recommended utilization of the crisis center located in the building for immediate support regarding suicidal ideation. Advised use of the crisis network phone line to access support and speak with someone about current feelings. 1. Consider medication. Started naltrexone 50 mg p.o. daily. 2. Encourage individual, group and milieu therapy. 3. Continue every 15 minute checks for safety. 4. Obtain collateral information. 5. Observe against the backdrop of the 96-hour hold. 6. Encouraged individual, group and milieu therapy. PDMP PDMP Reviewed: Not Reviewed Involuntary Hold Information 2 Hold Status: Legal Status: 96 Hour Hold Date/Time Hold Expires: 05/21/24@1730 96 Hour Hold: 96 Hour Involuntary Admission: No Attestations NPU 2 Medical Necessity Statement*: Inpatient hospitalization is medically necessary and the clinically appropriate intervention, at this time. We will monitor medications and make changes as indicated. Likely length of stay is 2-4 days. Coding Level of Care Code Acute Code for Chg Fwd Diagnoses Parent-child relational problem Z62.820 History of ADHD Z86.59 Suicidal ideation R45.851 Methamphetamine use disorder, severe, dependence F15.20 Cannabis use disorder F12.90 Generalized anxiety disorder F41.1
[2025-03-18 13:37] VITALS: BP 116/70; PULSE 102; RESP 16; TEMP 36.4; O2SAT 97
[2025-03-18 20:31] VITALS: BP 118/78; PULSE 73; RESP 18; TEMP 36.6; O2SAT 97
[2025-03-19 06:00] VITALS: BP 126/81; PULSE 59; RESP 16; TEMP 36.7; O2SAT 90
[2025-03-19 14:00] VITALS: BP 123/90; PULSE 97; RESP 17; TEMP 36.5; O2SAT 100
[2025-03-19 18:00] VITALS: BP 123/90; PULSE 97; RESP 17; TEMP 36.5; O2SAT 100
== END 2025-03-19 18:49 | disposition home or self-care (01) | DRG 751 ==
LOC: ER 22:52 → ER IP 03-15 00:42 → NP 03-15 14:12
PROVIDERS: Admitting Provider Psychiatry & Neurology Psychiatry; Emergency Provider Emergency Medicine; Visit Provider Psychiatry & Neurology Psychiatry
DX: F32.A Depression, unspecified (principal); F41.1 Generalized anxiety disorder; R45.851 Suicidal ideations; Z62.820 Parent-biological child conflict; F90.9 Attention-deficit hyperactivity disorder, unspecified type; Z62.810 Personal history of physical and sexual abuse in childhood
CPT/HCPCS: 36415; 80053; 80306; 80307; 84443; 85025; 93005; 96372; 97150; 97165; 99285; J2060; J3486; J9999